=== PATIENT | male | born 1980 | race Two or more races ===

== ENCOUNTER 2017-12-30 12:02 | Emergency (ER) | payer SELFPAY ==
[2017-12-30] MEDS ORDERED: DIPH/PERTUSS(ACELL)/TETANUS VAC/PF 0.5 ML SYR (>=10YO) IM ONE (12:27)
[2017-12-30] MEDS ORDERED: HYDROCODONE/ACETAMINOPHEN 5-325 MG TABLET PO ONE (12:28)
--- NOTE | 2017-12-30 12:29 | ER Document Report ---
ED Medical Screen (RME) - General Chief Complaint: Finger Injury Stated Complaint: FINGER LACERATION Time Seen by Provider: 12/30/17 12:24 Notes: RAPID MEDICAL EVALUATION DISCLOSURE I have seen this patient as part of a Rapid Medical Evaluation and, if applicable, placed any initially appropriate orders. The patient will be seen and fully evaluated, including a full history and physical exam, by a provider ( in Main ED or Fast Track) when a room becomes available. 37-year-old male here with right pointer finger injury after his lawnmower " took off a piece of finger". He has been taking Tylenol for the pain but is still having severe pain. This incident occurred yesterday. His tetanus is not up-to-date. EXAM Right second digit with distal minimal deformity and complex laceration as well as blood clot overlying area of injury TRAVEL OUTSIDE OF THE [place] IN LAST 30 DAYS: No - Related Data Allergies/Adverse Reactions: No Known Allergies Allergy (Unverified 12/30/17 12:09) Past Medical History - Social History Chew tobacco use (# tins/day): No Frequency of alcohol use: None Drug Abuse: None Renal/ Medical History: Denies: Hx Peritoneal Dialysis Physical Exam - Vital signs Vitals: Temp Pulse Resp BP Pulse Ox 97.5 F 66 16 136/85 H 97 12/30/17 12:13 12/30/17 12:13 12/30/17 12:13 12/30/17 12:13 12/30/17 12:13 Course - Vital Signs Vital signs: Temp Pulse Resp BP Pulse Ox 97.5 F 66 16 136/85 H 97 12/30/17 12:13 12/30/17 12:13 12/30/17 12:13 12/30/17 12:13 12/30/17 12:13
--- NOTE | 2017-12-30 15:01 | RADIOLOGY REPORT (SQ) ---
EXAM DESCRIPTION: FINGER RIGHT COMPLETED DATE/TIME: 12/30/2017 2:23 pm REASON FOR STUDY: finger injury COMPARISON: None. NUMBER OF VIEWS: Three views. TECHNIQUE: AP, lateral, and oblique images acquired of the right second finger. LIMITATIONS: None. FINDINGS: MINERALIZATION: Normal. BONES: There is a fracture involving the distal tuft of the distal phalanx of the 2nd digit. No othe r evidence for fracture is seen. SOFT TISSUES: There is associated soft tissue injury. OTHER: No other significant finding. IMPRESSION: Fracture involving the distal tuft of the distal phalanx of the 2nd digit with associate d soft tissue injury. COMMENT: SITE OF TRAUMA/COMPLAINT MARKED/STAMP COMPLETED: Yes TECHNICAL DOCUMENTATION: JOB ID: [id number] [employer]- All Rights Reserved Reading location - IP/workstation name: [email or web address]
--- NOTE | 2017-12-30 15:15 | ER Document Report ---
ED Hand/Wrist Injury - General Chief Complaint: Finger Injury Stated Complaint: FINGER LACERATION Time Seen by Provider: 12/30/17 12:24 Mode of Arrival: Ambulatory Information source: Patient, Relative Notes: Patient is a 37 year old male who presents to the ER today for finger laceration to the right index finger that occurred at 6 PM yesterday. Patient states that he was messing with a lawnmower belt when it pulled off the tip of his finger, sparing the fingernail. Patient has the tip of the finger at home, not on ice and did not bring it today. Patient states bleeding is only controlled if he keeps it bandaged. He admits to pain to the tip of the finger. He does not know when his last tetanus was. TRAVEL OUTSIDE OF THE [place] IN LAST 30 DAYS: No - Related Data Allergies/Adverse Reactions: No Known Allergies Allergy (Unverified 12/30/17 12:09) Past Medical History - General Information source: Patient - Social History Smoking Status: Never Smoker Chew tobacco use (# tins/day): No Frequency of alcohol use: None Drug Abuse: None Family History: Reviewed & Not Pertinent Patient has suicidal ideation: No Patient has homicidal ideation: No Renal/ Medical History: Denies: Hx Peritoneal Dialysis Review of Systems - Review of Systems Constitutional: No symptoms reported EENT: No symptoms reported Cardiovascular: No symptoms reported Respiratory: No symptoms reported Gastrointestinal: No symptoms reported Genitourinary: No symptoms reported Male Genitourinary: No symptoms reported Musculoskeletal: See HPI Skin: See HPI Hematologic/Lymphatic: No symptoms reported Neurological/Psychological: No symptoms reported Physical Exam - Vital signs Vitals: Temp Pulse Resp BP Pulse Ox 97.5 F 66 16 136/85 H 97 12/30/17 12:13 12/30/17 12:13 12/30/17 12:13 12/30/17 12:13 12/30/17 12:13 - Notes Notes: PHYSICAL EXAMINATION: GENERAL: Well-appearing and in no acute distress. HEAD: Atraumatic, normocephalic. EYES: Pupils equal round and reactive to light, extraocular movements intact, sclera anicteric, conjunctiva are normal. NECK: Normal range of motion, supple without lymphadenopathy LUNGS: CTAB and equal. No wheezes rales or rhonchi. HEART: Regular rate and rhythm without murmurs EXTREMITIES: Normal range of motion, no pitting edema. No cyanosis. NEUROLOGICAL: Cranial nerves grossly intact. Normal sensory/motor exams. PSYCH: Normal mood, normal affect. SKIN: Warm, Dry, normal turgor, large avulsion to the distal right second digit , bone visible, no bleeding, no erythema surrounding, mild edema, not including fingernail Course - Re-evaluation Re-evalutation: 12/30/17 17:28 X-ray of the right index finger shows a distal tuft fracture, this is an open fracture. Dr. segura, orthopedist on-call was consulted and advises putting him on Augmentin and sending him to the office tomorrow to schedule his completion amputation by Dr. ramos, hand specialist who will be in the office tomorrow. I did give this information for Dr. ramos to the patient and understands to call first thing tomorrow morning. Patient placed in wet to dry dressing and placed on Augmentin, tetanus given here. - Vital Signs Vital signs: Temp Pulse Resp BP Pulse Ox 98.5 F 63 16 133/90 H 100 12/30/17 15:27 12/30/17 15:27 12/30/17 12:13 12/30/17 15:27 12/30/17 15:27 Discharge - Discharge Clinical Impression: Open fracture of distal phalangeal tuft Avulsion, finger tip Qualifiers: Encounter type: initial encounter Qualified Code(s): S61.209A - Unspecified open wound of unspecified finger without damage to nail, initial encounter Condition: Stable Disposition: HOME, SELF-CARE Additional Instructions: Return immediately for any new or worsening symptoms. Follow up with orthopedics, call tomorrow morning, they want to see you in the office tomorrow. I have given you the information for this below. Take your antibiotic as prescribed. Prescriptions: Amox Tr/Potassium Clavulanate [Augmentin 875-125 Tablet] 1 tab PO BID 10 Days tablet Hydrocodone/Acetaminophen [Hydrocodon-Acetaminophen 5-325] 1 each PO Q4 PRN #15 tablet PRN Reason: Referrals: ESTUARDO RAMOS DO [ACTIVE STAFF] - Follow up as needed
[2017-12-30 15:28] VITALS: BP 133/90
== END 2017-12-30 15:46 | disposition home or self-care (01) ==
LOC: ER 12:02
DX: S62.630B Displaced fracture of distal phalanx of right index finger, initial encounter for open fracture (principal); W45.8XXA Other foreign body or object entering through skin, initial encounter; Y92.009 Unspecified place in unspecified non-institutional (private) residence as the place of occurrence of the external cause; Z23 Encounter for immunization
CPT/HCPCS: 90471; 90715; 99283